=== PATIENT | male | born 1985 | race Caucasian/White ===

== ENCOUNTER 2019-11-22 18:37 | Emergency (ER) | payer BC ==
[~2019-11-22] VITALS: Ht 182.9 cm; Wt 157.5 kg
--- NOTE | 2019-11-22 19:08 | NUR ---
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
--- NOTE | 2019-11-22 19:29 | NUR ---
ERP TO BEDSIDE
--- NOTE | 2019-11-22 19:33 | NUR ---
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 HE FIRST NOTICED HIS HEART RACING INTERMITTENTLY ABOUT A WEEK AGO BUT TODAY AT [facility] IT BECAME MORE CONSISTENT AND HE ALSO NOTICED "CHEST TIGHTNESS" SUBSTERNALLY THAT IS WORSE WITH PALPITATION. PT DENIES CARDIAC HX, HAS HTN. PT SITTING IN BED, CONNECTED TO CARDIAC, BP AND O2 MONITORS. BEDRAILS UP X2, CALL LIGHT IN REACH. NO SIGNS OF ACUTE DISTRESS. AT BEDSIDE. WILL CONITNUE TO MONITOR AND WATCH FOR ORDERS.
[2019-11-22 20:24] LABS: BASOPHILS # (AUTO) 0.03 x10^3/uL (0-0.1); BASOPHILS % (AUTO) 0 % (0-1); EOSINOPHILS # (AUTO) 0.22 x10^3/uL (0-0.4); EOSINOPHILS % (AUTO) 3 % (1-7); LYMPHOCYTES # (AUTO) 3.02 x10^3/uL (1-3.4); LYMPHOCYTES % (AUTO) 39 % (22-44); MD NO; MEAN CORPUSCULAR HEMOGLOBIN 28.5 pg (27.5-34.5); MEAN CORPUSCULAR HGB CONC 32.8 g/dL (33.2-36.2); MEAN PLATELET VOLUME 7.4 fL (7.4-10.4); MONOCYTES # (AUTO) 0.65 x10^3/uL (0.2-0.8); MONOCYTES % (AUTO) 8 % (2-9); NEUTROPHILS % (AUTO) 50 % (42-75); PLATELET COUNT 278 x10^3/uL (130-400); RED BLOOD COUNT 4.82 x10^6/uL (4.38-5.82); RED CELL DISTRIBUTION WIDTH 13.7 % (9.4-14.8)
[2019-11-22 20:36] LABS: ANION GAP 7 mmol/L (5-15); CALCIUM 9.2 mg/dL (8.5-10.1); CHLORIDE 108 mmol/L (98-107)
[2019-11-22 20:40] LABS: FREE T4 (FREE THYROXINE) 1.45 ng/dL (0.76-1.46); TROPONIN I < 0.015 ng/mL (0.000-0.045)
[2019-11-22 21:23] VITALS: BP 127/74
--- NOTE | 2019-11-22 21:36 | NUR ---
PT HAS REMAINED SITTING IN BED, RESPIRATIONS EVEN AND UNLABORED, NO SIGNS OF DISTRESS, CALL LIGHT IN REACH, AT BEDSIDE.
== END 2019-11-22 22:14 | disposition home or self-care (01) ==
LOC: ED 20:06
DX: R00.2 Palpitations (principal); R07.89 Other chest pain; I10 Essential (primary) hypertension
CPT/HCPCS: 36415; 71045; 80048; 82040; 84439; 84443; 84484; 85025; 93005; 99285

== ENCOUNTER → 2019-12-30 | Outpatient (CLI) | payer BC | END | disposition home or self-care (01) | LOC: CVU 08:25 | PROVIDERS: ATTEND Internal Medicine Cardiovascular Disease | DX: I11.9 Hypertensive heart disease without heart failure (principal); E66.01 Morbid (severe) obesity due to excess calories; Z72.0 Tobacco use | CPT/HCPCS: 93306 ==